=== PATIENT | male | born 1970 | race Caucasian/White ===

== ENCOUNTER → 2016-12-12 | Outpatient (CLI) | payer BC, OTHER ==
[~2016-12-12] MED LIST: AMB5 PO; CHOLTAB3 PO; CMD3 PO; CMD5 PO; LVNISUNK IM; OXYC-57 PO; PRLSRUNK; stool softener
== END | disposition home or self-care (01) ==
LOC: C.RDSM 12:00
PROVIDERS: ATTEND Physical Medicine & Rehabilitation Sports Medicine
DX: M25.521 Pain in right elbow (principal)

== ENCOUNTER → 2017-03-27 | Outpatient (CLI) | payer BC ==
--- NOTE | 2017-03-31 15:30 | Sleep Study ---
Sleep Study Report Date of Service: March 27, 2017 Sleep Study Report Clinical data: Patient is a 46-year-old male with loud snoring, morning headaches, fatigue, and excessive daytime sleepiness. He also has insufficient sleep syndrome. He sleeps less than 6 hours per night. He was referred for a sleep study to determine whether he has sleep apnea. On the evening of March, a home sleep apnea test was performed using a Tye type 3 monitor. The patient has a BMI of 29.15. Recording results: Total recording time was 10 hours. Patient monitoring time and estimated sleep time was 7.1 hours. Respiratory data: There was no evidence of clinically significant sleep apnea seen. The MIRANDA was 3.4. There were 23 hypopneas and 1 central apnea recorded. The longest respiratory event was 43 seconds. Oximetry data: No hypoxemia was seen. Oxygen kristine was 89 percent. Mean saturation was 94 percent. Heart rate data: Heart rates ranged from 50 to 66 beats per minute. Snoring data: Snoring was recorded throughout the entire night. Impression: No evidence of clinically significant sleep apnea/hypopnea with an MIRANDA of 3.4 without significant nocturnal hypoxemia Recommendations: The patient should continue to practice good sleep hygiene. He should get more than 6 hours of sleep per night. ENT evaluation for snoring may be needed. Copies To 1: Chrissy Simmons M.D.
== END | disposition home or self-care (01) ==
LOC: C.NEUR 13:41
PROVIDERS: ATTEND Internal Medicine Pulmonary Disease
DX: R53.82 Chronic fatigue, unspecified (principal); F51.12 Insufficient sleep syndrome; R06.83 Snoring

== ENCOUNTER → 2017-10-02 | Outpatient (CLI) | payer BC | END | disposition home or self-care (01) | LOC: C.RDSM 08:45 | PROVIDERS: ATTEND Physical Medicine & Rehabilitation Sports Medicine | DX: M25.521 Pain in right elbow (principal) ==

== ENCOUNTER → 2017-10-13 | Outpatient (CLI) | payer BC ==
--- NOTE | 2017-10-13 08:23 | DIAGNOSTIC IMAGING REPORT ---
MRI OF THE RIGHT ELBOW WITHOUT CONTRAST CLINICAL HISTORY: Persistent right elbow pain. Medial epicondylitis. COMPARISON STUDY: Right elbow radiographs October 02, 2017. TECHNIQUE: Utilizing a 1.5 Sahra magnet and dedicated coil, multiplanar, multiecho imaging of the right elbow was performed without intravenous or intra-articular contrast. FINDINGS: Alignment of the right elbow is anatomic. No fracture, marrow replacement or marrow edema is present. Note is made of several foci of susceptibility artifact within the deep subcutaneous tissues of the right elbow overlying the dorsal lateral aspect of the olecranon. No corresponding abnormality is identified on right elbow radiographs performed October 02, 2017. No right elbow joint effusion is present. Ulnar collateral and radial collateral ligaments appear intact. Common extensor tendon is intact. Note is made of mild increased linear T2 signal within the common flexor tendon. The adjacent soft tissues are unremarkable. There is no evidence for an osteochondral abnormality. No mass or fluid collection is adjacent to the right elbow. IMPRESSION: 1. Mild increased T2 signal within the proximal common flexor tendon consistent with medial epicondylitis. 2. Several foci of susceptibility artifact within the deep subcutaneous tissues of the right elbow overlying the dorsal lateral aspect of the olecranon without corresponding radiographic abnormality on radiographs of October 02, 2017. This finding could reflect surgical material or tiny foreign bodies. Electronically signed by: Levi Martinez M.D. 10/13/2017 8:22 AM Dictated Date/Time: 10/13/2017 8:10 AM
== END | disposition home or self-care (01) ==
LOC: C.MRI 06:37
PROVIDERS: ATTEND Physical Medicine & Rehabilitation Sports Medicine
DX: M77.01 Medial epicondylitis, right elbow (principal)